=== PATIENT | male | born 1970 | race African-American/Black ===

== ENCOUNTER → 2020-09-02 | Outpatient (CLI) | payer OTHER, MEDICAID ==
[2014-06-15 11:13] VITALS: BP 115/74
[~2020-09-02] MED LIST: BACL10TA PO; METH5TAB2 PO; OXYC5CAP PO; PREG200C PO; PREG20SO PO; SENN8.6T99 PO; TEST1.25 TD; VALIUM10 MG PO
== END ==
LOC: LAB 10:49
PROVIDERS: ATTEND Specialist
DX: Z01.812 Encounter for preprocedural laboratory examination (principal); Z20.828 Contact with and (suspected) exposure to other viral communicable diseases; I73.9 Peripheral vascular disease, unspecified
CPT/HCPCS: C9803; U0003

== ENCOUNTER 2020-09-06 10:12 | Emergency (ER) | payer MEDICAID ==
[~2020-09-06] VITALS: Ht 188 cm; Wt 75.0 kg
[~2020-09-06 10:12] MED LIST changes: -PREG200C PO
[2020-09-06 10:22] VITALS: BP 147/97
[2020-09-06] MEDS ORDERED: PREG200C PO (11:12)
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
--- NOTE | 2020-09-06 14:43 | NUR ---
SW consulted to assist pt with medication refill. Spoke with patient who stated he needs to refill his pain medications and does not have a PCP. SW provided contact information for community clinics as well as the number for visiting physicians as they are taking new patients. Patient stated he will follow up to get connected with a PCP for pain medication and ongoing primary care. Patient stated no further SW needs at this time.
== END 2020-09-06 11:25 | disposition home or self-care (01) ==
LOC: ER 10:12
DX: M79.601 Pain in right arm (principal); Z76.0 Encounter for issue of repeat prescription; M79.602 Pain in left arm; J45.909 Unspecified asthma, uncomplicated; Z87.891 Personal history of nicotine dependence
CPT/HCPCS: 99281